=== PATIENT | female | born 1965 | race Caucasian/White ===

== ENCOUNTER 2021-08-26 20:14 | Emergency (ER) | payer MEDICARE ==
[2021-08-26 20:52] LABS: HEMOGLOBIN 13.6 gm/dl (12.3-15.3); RED BLOOD COUNT 4.9 M/UL (4.00-5.10); WHITE BLOOD COUNT 7.7 K/UL (4.5-11.0)
[2021-08-26 21:12] LABS: BUN/CREATININE RATIO 16 (0-10)
[2021-08-27] MEDS ORDERED: CLINDAMYCIN HC300 MG PO (00:48)
== END 2021-08-27 01:03 | disposition home or self-care (01) ==
LOC: ER1 20:14
PROVIDERS: Family Medicine
DX: K04.7 Periapical abscess without sinus (principal); I10 Essential (primary) hypertension; Z88.0 Allergy status to penicillin; M86.9 Osteomyelitis, unspecified; Z88.2 Allergy status to sulfonamides
CPT/HCPCS: 70487; 80048; 85025; 86140; 87040; 96365; 96375; 99283; J0696; Q9967